=== PATIENT | male | born 1985 | race Caucasian/White ===

== ENCOUNTER 2017-12-07 11:47 | Emergency (ER) | payer BC ==
[2017-12-07] MEDS ORDERED: Ondansetron INJ* 2 MG/ML VIAL IV ONE (11:54)
[2017-12-07] MEDS ORDERED: Ketorolac INJ* 30 MG/ML 1 ML VIAL IV ONE (11:54)
[2017-12-07] MEDS ORDERED: HYDROmorphone INJ* 1 MG/ML CARPUJECT SYRINGE IV ONE (11:54)
[2017-12-07] MEDS ORDERED: NS 0.9% 1000 ML* 1,000 ML IV ONE (11:55)
[2017-12-07 12:35] LABS: ABS Basophils 0.1 10^3/ul (0-0.2); ABS Eosinophils 0.1 10^3/ul (0-0.6); ABS Monocytes 0.6 10^3/ul (0-0.8); ABS Neutrophils 6.2 10^3/ul (1.5-7.7); ABS Nucleated RBC 0 10^3/ul; Eosinophil % 0.8 % (0-6); Hematocrit 40 % (42-52); Hemoglobin 13.8 g/dl (14.0-18.0); Lymphocyte % 22.1 % (25-47); Mean Corpuscular HGB Conc 34 g/dl (31-36); Mean Corpuscular Hemoglobin 29 pg (27-31); Mean Corpuscular Volume 85 fL (80-94); Mean Platelet Volume 10.3 um3 (7.4-10.4); Nucleated Red Blood Cells % 0.1; Platelet Count 182 10^3/ul (150-450); Red Cell Distribution Width 13 % (10.5-15); White Blood Count 8.9 10^3/ul (3.5-10.8)
[2017-12-07] MEDS ORDERED: HYDROmorphone INJ* 2 MG/ML CARPUJECT SYRINGE IV ONE (13:00)
[2017-12-07 13:06] LABS: EGFR Non-African American 83.2 (>60)
--- NOTE | 2017-12-07 13:30 | RAD ---
INDICATION: Left flank pain COMPARISON: None TECHNIQUE: Noncontrast axial source images were acquired from the level hemidiaphragms to the symphysis pubis as part of CT imaging for renal stone. Lung bases: The lung bases are clear. Liver: The liver is enlarged with findings of hepatic steatosis. Noncontrast imaging shows no evidence of a hepatic mass or ductal dilatation. Gallbladder: There are no calcified gallstones. There is no evidence of wall thickening or pericholecystic fluid.. Spleen: The spleen is normal in size. The noncontrast CT appearance is normal. Pancreas: Noncontrast imaging shows no pancreatic mass or ductal dilitation. Adrenal glands: No masses are identified. Kidneys/Bladder: There is a nonobstructive 1 mm upper pole right renal calculus. There is a 2 mm lower pole left renal calculus. There is minor left-sided hydroureter with minor left-sided periureteral stranding. No ureteral calculus is seen. There are no bladder calculi. There are phleboliths in the minor pelvis Adenopathy: There is no evidence of intraperitoneal or retroperitoneal adenopathy. Evaluation is limited without oral contrast. Fluid collections: There are no free or localized fluid collections. Vessels: The aorta and iliac vessels are normal in caliber. There are no significant atherosclerotic changes. The IVC appears normal Pelvic organs: The uterus and adnexa appear normal GI tract: Evaluation of the bowel is limited without oral contrast. The stomach, small bowel, and lower GI tract appear grossly normal. There are no obstructive findings. The appendix is visualized and appears normal. Soft tissues: No soft tissue abnormalities of the extraperitoneal abdomen or pelvis are identified. Osseous structures: There are no acute osseous findings. IMPRESSION: BILATERAL NONOBSTRUCTIVE NEPHROLITHIASIS. MILD PROMINENCE OF THE LEFT URETER WITH PERIURETERAL STRANDING SUGGESTS THE POSSIBILITY OF RECENT PASSAGE OF A STONE OR CONCEIVABLY INFECTIOUS/INFLAMMATORY CHANGE. SUGGEST CORRELATION WITH URINALYSIS
[2017-12-07 14:07] LABS: Urine Appearance Cloudy; Urine Blood 3+ (Negative); Urine Color Yellow; Urine Ketones 1+ (Negative); Urine Protein 1+(30 mg/dL) (Negative); Urine Specific Gravity 1.024 (1.010-1.030); Urine Urobilinogen Negative (Negative)
[2017-12-07] MEDS ORDERED: Ciprofloxacin TAB* 500 MG PO ONE (14:35)
[2017-12-07 16:22] VITALS: BP 118/68
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
== END 2017-12-07 16:20 | disposition home or self-care (01) ==
LOC: ED 11:47
DX: N13.6 Pyonephrosis (principal)
CPT/HCPCS: 36415; 74176; 80053; 81003; 81015; 83605; 83690; 85025; 86140; 87086; 96360; 96374; 96375; 96376; 99284; A9270-GY; J1170; J1885; J2405